=== PATIENT | female | born 1985 | race American Indian/Alaskan Native ===

== ENCOUNTER 2017-08-29 08:59 | Emergency (ER) | payer MEDICAID ==
[2017-08-29] MEDS ORDERED: TYLENOL PO ONE (09:33)
--- NOTE | 2017-08-29 09:36 | Emergency Department Report ---
Chief Complaint: Abdominal Pain Stated Complaint: / CRAMPING/VOMITING Time Seen by Provider: 08/29/17 09:32 - HPI History of Present Illness: 31-year-old AA female presents to the emergency department with complaint of severe mid upper abdominal discomfort and cramping that has been going on since this morning. The patient is about 13 weeks , . She is 13 weeks based on her last menstrual cycle but she has been following up with an PULP OPERATOR at a local women's clinic, Dr. King. She denies any vaginal bleeding, discharge, dysuria. She does have some nausea and vomiting and feels sweaty. She otherwise denies any past medical history. She presents with elevated blood pressure and denies any history of hypertension but did say that towards the end of her last she was having some elevated blood pressure with concern for preeclampsia. She has not taken anything for her symptoms. Presentation. - ROS Review of Systems: Positive for abdominal pain/cramping and nausea and vomiting Negative for fever, vaginal bleeding, discharge, dysuria - Exam Vital Signs: Vital Signs 08/29/17 09:05 Temperature 98.6 F Pulse Rate 64 Blood Pressure 171/87 Physical Exam: Heart and lungs sounds are normal to auscultation. There is some tenderness to palpation towards the upper abdomen. No guarding. MSE screening note: Focused history and physical exam performed. Due to findings the following was ordered: Patient will have a CBC, CMP, quantitative and a urinalysis. She will have a transvaginal and obstetric ultrasound to rule out an ectopic and look into her . Patient may need more labs or imaging regarding her upper abdominal pain. ED Disposition for MSE Condition: Stable Instructions: Abdominal Pain (ED) Referrals: PRIMARY CARE, [Primary Care Provider] - 3-5 Days
[2017-08-29 09:40] LABS: Basophils % (Auto) 0.3 % (0.0-1.8); Eosinophils # (Auto) 0.2 K/mm3 (0.0-0.4); Eosinophils % (Auto) 1.4 % (0.0-4.3); Hematocrit 36.4 % (30.3-42.9); Hemoglobin 11.9 gm/dl (10.1-14.3); Lymphocytes # (Auto) 2.1 K/mm3 (1.2-5.4); Lymphocytes % (Auto) 18.1 % (13.4-35.0); Mean Corpuscular HGB Conc 33 % (30-34); Mean Corpuscular Hemoglobin 28 pg (28-32); Mean Corpuscular Volume 84 fl (79-97); Monocytes # (Auto) 0.8 K/mm3 (0.0-0.8); Monocytes % (Auto) 6.8 % (0.0-7.3); Platelet Count 232 K/mm3 (140-440); Red Blood Count 4.32 M/mm3 (3.65-5.03); Red Cell Distribution Width 14.1 % (13.2-15.2)
[2017-08-29 09:53] LABS: Bilirubin,Urine NEG (Negative); Blood,Urine NEG (Negative); Color,Urine Yellow (Yellow); Mucus,Urine FEW /HPF; Protein,Urine <15 mg/dL mg/dL (Negative); Urobilinogen,Urine < 2.0 mg/dL (<2.0)
[2017-08-29 10:44] LABS: Alanine Aminotransferase 12 units/L (7-56); Albumin 3.7 g/dL (3.9-5); BUN/Creatinine Ratio 9; Blood Urea Nitrogen 6 mg/dL (7-17); Calcium 8.7 mg/dL (8.4-10.2); Hemolysis Index 3
[2017-08-29 11:49] VITALS: BP 135/77
--- NOTE | 2017-08-29 12:19 | Ultrasound Report ---
OB ULTRASOUND GREATER THAN 14 WEEKS INDICATION: Abdominal pain, cramping, . COMPARISON: None similar at this institution. TECHNIQUE: Transabdominal grayscale ultrasound with Doppler interrogation. Gestation: Michaels Position: Breech Amniotic Fluid: WNL (<less than 24 weeks, subjective) Placenta: Posterior Placental Grade: Zero Heart Rate: 144 BPM Cervical length: 3.3 cm (Normal > 3 cm) It is too early for a anatomical survey BPD: 2.5 cm = 14 w 3 d HC: 9.6 cm = 14 w 3 d AC: 8.1 cm = 14 w 4 d FL: 1.3 cm = 13 w 5 d HC/AC Ratio: 1.18 Cephalic Index: 83 LMP: 05/27/2017 Clinical age = 13 w 3 d EDC: 03/03/2018 US Gest. Age = 14 w 2 d EDC: 02/25/2018 CONCLUSION: Single, viable intrauterine gestation with ultrasound estimated age of 14 weeks and 2 days and EDC of 02/25/2018, currently in breech lie with details, as above. Thank you for the opportunity to participate in this patient's care.
--- NOTE | 2017-08-29 12:37 | Emergency Department Report ---
HPI - General Chief Complaint: Abdominal Pain Time Seen by Provider: 08/29/17 09:32 - HPI HPI: 31-year-old AA female presents to the emergency department with complaint of severe mid upper abdominal discomfort and cramping that has been going on since this morning. The patient is about 13 weeks , . She is 13 weeks based on her last menstrual cycle but she has been following up with an CSR RETAIL at a local women's clinic, Dr. King. She denies any vaginal bleeding, discharge, dysuria. She does have some nausea and vomiting and feels sweaty. She otherwise denies any past medical history. She presents with elevated blood pressure and denies any history of hypertension but did say that towards the end of her last she was having some elevated blood pressure with concern for preeclampsia. She has not taken anything for her symptoms. ED Past Medical Hx - Past Medical History Additional medical history: pregeant 13 weeks - Surgical History Past Surgical History?: No - Social History Smoking Status: Never Smoker ED Review of Systems ROS: Stated complaint: / CRAMPING/VOMITING Other details as noted in HPI Comment: All other systems reviewed and negative Constitutional: denies: chills, fever Eyes: denies: eye pain, eye discharge, vision change ENT: denies: ear pain, throat pain Respiratory: denies: cough, shortness of breath, wheezing Cardiovascular: denies: chest pain, palpitations Gastrointestinal: abdominal pain. denies: diarrhea Genitourinary: denies: urgency, dysuria, discharge Musculoskeletal: denies: back pain, joint swelling, arthralgia Skin: denies: rash, lesions Neurological: denies: headache, weakness, paresthesias Physical Exam - Physical Exam Vital Signs: Vital Signs 08/29/17 08/29/17 08/29/17 09:05 09:40 11:49 Temperature 98.6 F 98.8 F Pulse Rate 64 60 60 Respiratory 18 Rate Blood Pressure 171/87 Blood Pressure 140/107 135/77 [Left] O2 Sat by Pulse 99 Oximetry Physical Exam: GENERAL: The patient is well-developed well-nourished. HENT: Normocephalic. Atraumatic. Patient has moist mucous membranes. EYES: Extraocular motions are intact. NECK: Supple. Trachea is midline. CHEST/LUNGS: Clear to auscultation. There is no respiratory distress noted. HEART/CARDIOVASCULAR: Regular. There is no tachycardia. There is no murmur. ABDOMEN: Abdomen is soft. There is some epigastric to left sided mild tenderness to palpation. No guarding. Patient has normal bowel sounds. There is no abdominal distention. SKIN: Skin is warm and dry. NEURO: The patient is awake, alert, and oriented. The patient is cooperative. The patient has no focal neurologic deficits. The patient has normal speech. MUSCULOSKELETAL: There is no tenderness or deformity. There is no limitation range of motion. There is no evidence of acute injury. ED Course Vital Signs 08/29/17 08/29/17 08/29/17 09:05 09:40 11:49 Temperature 98.6 F 98.8 F Pulse Rate 64 60 60 Respiratory 18 Rate Blood Pressure 171/87 Blood Pressure 140/107 135/77 [Left] O2 Sat by Pulse 99 Oximetry ED Medical Decision Making - Lab Data Result diagrams: 08/29/17 09:26 08/29/17 09:26 - Radiology Data Radiology results: report reviewed OB ULTRASOUND GREATER THAN 14 WEEKS INDICATION: Abdominal pain, cramping, . COMPARISON: None similar at this institution. TECHNIQUE: Transabdominal grayscale ultrasound with Doppler interrogation. Gestation: Michaels Position: Breech Amniotic Fluid: WNL (<less than 24 weeks, subjective) Placenta: Posterior Placental Grade: Zero Heart Rate: 144 BPM Cervical length: 3.3 cm (Normal > 3 cm) It is too early for a anatomical survey BPD: 2.5 cm = 14 w 3 d HC: 9.6 cm = 14 w 3 d AC: 8.1 cm = 14 w 4 d FL: 1.3 cm = 13 w 5 d HC/AC Ratio: 1.18 Cephalic Index: 83 LMP: 05/27/2017 Clinical age = 13 w 3 d EDC: 03/03/2018 US Gest. Age = 14 w 2 d EDC: 02/25/2018 CONCLUSION: Single, viable intrauterine gestation with ultrasound estimated age of 14 weeks and 2 days and EDC of 02/25/2018, currently in breech lie with details, as above. Thank you for the opportunity to participate in this patient's care. Transcribed By: RS Dictated By: ERON STONE MD Electronically Authenticated By: ERON STONE MD Signed Date/Time: 08/29/17 1212 - Medical Decision Making Patient presents with some upper abdominal cramping and/or discomfort that is mostly left-sided. Patient is and they ultrasound was done that shows a live intrauterine at about 14 weeks. Labs are mostly unremarkable including no urinary tract infection. Vital signs stable throughout her ED course. Her differential also includes possible cholelithiasis, however the patient does not have any right upper quadrant tenderness to palpation and had normal bilirubin on her labs. She has good follow-up with OB. She has been encouraged to return to the emergency Department with any worsening of her symptoms or any acute distress, especially if there is any development of vaginal bleeding. - Differential Diagnosis , miscarriage, GERD, cholelithiasis Critical Care Time: No Critical care attestation.: If time is entered above; I have spent that time in minutes in the direct care of this critically ill patient, excluding procedure time. ED Disposition Clinical Impression: Abdominal cramping Qualifiers: Weeks of gestation: 14 weeks Qualified Code(s): Z3A.14 - 14 weeks gestation of Disposition: DC-01 TO HOME OR SELFCARE Is pt being admited?: No Condition: Stable Instructions: (ED), Abdominal Pain in (ED) Additional Instructions: Please follow-up with your primary care physician and CSR RETAIL in the next few days. Return to the emergency Department with any worsening of your symptoms, development of vaginal bleeding, or any acute distress Referrals: ROXI, [place] [Other] - [facility] [Primary Care Provider] - 2-3 Days Time of Disposition: 12:37
== END 2017-08-29 12:44 | disposition home or self-care (01) ==
LOC: ED 08:59
DX: O26.892 Other specified pregnancy related conditions, second trimester (principal); R10.10 Upper abdominal pain, unspecified; Z3A.14 14 weeks gestation of pregnancy
CPT/HCPCS: 36415; 76805; 80053; 81001; 84702; 85025

== ENCOUNTER 2020-02-26 09:57 | Emergency (ER) | payer MEDICAID ==
--- NOTE | 2020-02-26 10:29 | Event Note ---
ED Screening Note Date of service: 02/26/20 Time: 10:23 ED Screening Note: 34-year-old -Citizen Of [place] female presents to the emergency room reporting that she started spotting on Thursday and today vaginal bleeding has gotten heavier. She denies any cramps. She is 3 para 2 with a last menstrual period 02/11/2020. Patient states that she just saw her OB doctor on Thursday for confirmation of . Patient has not had an ultrasound yet. This initial assessment/diagnostic orders/clinical plan/treatment(s) is/are subject to change based on patients health status, clinical progression and re- assessment by fellow clinical providers in the ED. Further treatment and workup at subsequent clinical providers discretion. Patient/guardian urged not to elope from the ED as their condition may be serious if not clinically assessed and managed. Initial orders include:
[2020-02-26 11:00] LABS: Basophils % (Auto) 0.4 % (0.0-1.8); Eosinophils # (Auto) 0.3 K/mm3 (0.0-0.4); Eosinophils % (Auto) 2.6 % (0.0-4.3); Hematocrit 38.3 % (30.3-42.9); Hemoglobin 12.6 gm/dl (10.1-14.3); Lymphocytes # (Auto) 2.5 K/mm3 (1.2-5.4); Lymphocytes % (Auto) 26.3 % (13.4-35.0); Mean Corpuscular HGB Conc 33 % (30-34); Mean Corpuscular Volume 81 fl (79-97); Monocytes # (Auto) 0.7 K/mm3 (0.0-0.8); Monocytes % (Auto) 7.2 % (0.0-7.3); Platelet Count 302 K/mm3 (140-440); Red Blood Count 4.73 M/mm3 (3.65-5.03); Red Cell Distribution Width 14.5 % (13.2-15.2)
[2020-02-26 12:11] LABS: Bilirubin,Urine NEG (Negative); Blood,Urine LG (Negative); Color,Urine Red (Yellow); Urobilinogen,Urine < 2.0 mg/dL (<2.0)
[2020-02-26 12:12] LABS: RBC,Urine > 182.0 /HPF (0.0-6.0)
--- NOTE | 2020-02-26 14:38 | Emergency Department Report ---
ED HPI - General Chief complaint: Vaginal Bleeding Stated complaint: 6 WEEKS VAGINAL BLEEDING Time Seen by Provider: 02/26/20 14:15 Source: patient Mode of arrival: Ambulatory Limitations: No Limitations - History of Present Illness Initial comments: This is a 34-year-old female nontoxic, well nourished in appearance, no acute signs of distress presents to the ED with c/o of vaginal bleeding and pelvic pain x3 days. Patient denies any abdominal pain. Patient denies any vaginal discharge or foul odor. Patient denies any nausea, vomiting, chest pain, shortness of breathe, fever, chills, headache, stiff neck, numbness, tingling. Patient denies any urinary symptoms. Patient denies any allergies or PMH. LMP 02/11/2020. MD Complaint: vaginal bleeding, other (pelvic pain) -: days(s) Location: pelvis Radiation: none Severity: mild Severity scale (0 -10): 3 Quality: cramping, aching Consistency: intermittent Improves with: none Worsens with: none Associated symptoms: vaginal bleeding. denies: nausea/vomiting, vaginal discharge, abdominal pain, dysuria, headache, vision changes, malaise, dysparuenia, rash, seizure, shortness of breath, syncope, weakness Vaginal bleeding: light :: Yes Pre-dez care: followed by OB - Related Data Home Medications Medication Instructions Recorded Confirmed Last Taken Formula Tablet 1 tab PO DAILY 02/19/18 02/19/18 02/19/18 10:00 Previous Rx's Medication Instructions Recorded Last Taken Type HYDROcodone/APAP 5-325 [[place] 1 each PO Q6HR PRN #30 tablet 02/20/18 Unknown Rx 5/325] Ibuprofen [Motrin] 800 mg PO Q8HR PRN #60 tablet 02/20/18 Unknown Rx Allergies Allergy/AdvReac Type Severity Reaction Status Date / Time No Known Allergies Allergy Unverified 08/29/17 09:09 ED Review of Systems ROS: Stated complaint: 6 WEEKS VAGINAL BLEEDING Other details as noted in HPI Constitutional: denies: chills, fever Eyes: denies: eye pain, eye discharge, vision change ENT: denies: ear pain, throat pain Respiratory: denies: cough, shortness of breath, wheezing Cardiovascular: denies: chest pain, palpitations Endocrine: no symptoms reported Gastrointestinal: denies: abdominal pain, nausea, diarrhea Genitourinary: abnormal menses. denies: urgency, dysuria, discharge Musculoskeletal: denies: back pain, joint swelling, arthralgia Skin: denies: rash, lesions Neurological: denies: headache, weakness, paresthesias Psychiatric: denies: anxiety, depression Hematological/Lymphatic: denies: easy bleeding, easy bruising ED Past Medical Hx - Past Medical History Hx Hypertension: No Hx Congestive Heart Failure: No Hx Diabetes: No Hx Deep Vein Thrombosis: No Hx Renal Disease: No Hx Sickle Cell Disease: No Hx Seizures: No Hx Asthma: No Hx COPD: No Hx HIV: No Additional medical history: pregeant 13 weeks - Social History Smoking Status: Never Smoker Substance Use Type: None - Medications Home Medications: Home Medications Medication Instructions Recorded Confirmed Last Taken Type Formula Tablet 1 tab PO DAILY 02/19/18 02/19/18 02/19/18 10:00 History HYDROcodone/APAP 5-325 [[place] 1 each PO Q6HR PRN #30 tablet 02/20/18 Unknown Rx 5/325] Ibuprofen [Motrin] 800 mg PO Q8HR PRN #60 tablet 02/20/18 Unknown Rx ED Physical Exam - General Limitations: No Limitations General appearance: alert, in no apparent distress - Head Head exam: Present: atraumatic, normocephalic - Eye Eye exam: Present: normal appearance - Neck Neck exam: Present: normal inspection, full ROM - Respiratory Respiratory exam: Absent: respiratory distress - Cardiovascular Cardiovascular Exam: Present: regular rate - GI/Abdominal GI/Abdominal exam: Present: soft, normal bowel sounds. Absent: distended, tenderness, guarding, rebound, rigid, diminished bowel sounds - Extremities Exam Extremities exam: Present: normal inspection - Back Exam Back exam: Present: normal inspection, full ROM. Absent: tenderness, CVA tenderness (R), CVA tenderness (L), muscle spasm, paraspinal tenderness, vertebral tenderness, rash noted - Neurological Exam Neurological exam: Present: alert, oriented X3, normal gait - Psychiatric Psychiatric exam: Present: normal affect, normal mood - Skin Skin exam: Present: warm, dry, intact, normal color. Absent: rash ED Course Vital Signs 02/26/20 10:16 Temperature 99.7 F H Pulse Rate 71 Respiratory 20 Rate Blood Pressure 136/75 O2 Sat by Pulse 98 Oximetry - Reevaluation(s) Reevaluation #1: 02/26/20 14:37 Patient is speaking in full sentences with no signs of distress noted. ED Medical Decision Making - Lab Data Result diagrams: 02/26/20 10:35 - Radiology Data Referring Physician: ANDERSON ARELLANO Patient Name: NADIYA BLAS Date of : 1985 Sex: Female Report Date: 2020-02-26 Report Status: Finalized [address] [address] Ultrasound Report Signed Patient: NADIYA BLAS MR#: [id number] : 1985 Acct:[id number] Age/Sex: 34 / F ADM Date: 02/26/20 Loc: ED Attendin mary Dr: Ordering Physician: ANDERSON ARELLANO NP Date of Service: 02/26/20 Procedure(s): US OB transvaginal Accession Number(s): [id number] cc: ANDERSON ARELLANO NP ULTRASOUND OBSTETRIC INDICATION / CLINICAL INFORMATION: vaginal bleeding. Clinical Gestational Age (GA) in weeks, days: 6, 4 TECHNIQUE: Transabdominal and Transvaginal. COMPARISON: None available. FINDINGS: No intrauterine gestational sac. Thickening of the endometrial complex measuring 1.7 cm. ADNEXA: No adnexal mass or cyst. FREE FLUID: None. ADDITIONAL FINDINGS: Tiny nabothian cyst in the cervix. IMPRESSION: 1. No intrauterine . C linical and laboratory correlation is recommended. Signer Name: Angie Britton MD Signed: 02/26/2020 3:18 PM Workstation Name: [id number] Transcribed By: DT Dictated By: Babar Britton MD Electronically Authenticated By: Babar Britton MD Signed Date/Time: 02/26/20 1518 DD/ 1516 TD/TT: Referring Physician: ANDERSON ARELLANO Patient Name: NADIYA BLAS Date of : 1985 Sex: Female Report Date: 2020-02-26 Report Status: Finalized [address] [address] Ultrasound Report Signed Patient: NADIYA BLAS MR#: [id number] : 1985 Acct:[id number] Age/Sex: 34 / F ADM Date: 02/26/20 Loc: ED Attending Dr: Ordering Physician: ANDERSON ARELLANO NP Date of Service: 02/26/20 Procedure(s): US OB <= 14 weeks fetus Accession Number(s): [id number] cc: ANDERSON ARELLANO NP ULTRASOUND OBSTETRIC INDICATION / CLINICAL INFORMATION: vaginal bleeding. Clinical Gestational Age (GA) in weeks, days: 6, 4 TECHNIQUE: Transabdominal and Transvaginal. COMPARISON: None available. FINDINGS: No intrauterine gestational sac. Thickening of the endometrial complex measuring 1.7 cm. ADNEXA: No adnexal mass or cyst. FREE FLUID: None. ADDITIONAL FINDINGS: Tiny nabothian cyst in the cervix. IMPRESSION: 1. No intrauterine . Clinical and laboratory correlation is recommended. Signer Name: Angie Britton MD Signed: 02/26/2020 3:18 PM Workstation Name: [id number] Transcribed By: DT Dictated By: Babar Britton MD Electronically Authenticated By: Babar Britton MD Signed Date/Time: 02/26/20 1518 DD/ 15 TD/TT: - Medical Decision Making This is a 34-year-old female presents with threatened miscarriage. Patient is stable and was examined by me. Normal abdominal exam. US OB obtained and dictated by the radiologist. Ua obtained. Quantative serum test obtained. Patient notified of the US report with no questions noted by the patient. Patient was instructed f/u with [facility] in 2 days. RH factor positive. Labs within normal limits. Patient was given strict precautions and education on ectopic . At time of discharge, the patient does not seem toxic or ill in appearance. No acute signs of distress noted. Patient agrees to discharge treatment plan of care. No further questions noted by the patient. Critical care attestation.: If time is entered above; I have spent that time in minutes in the direct care of this critically ill patient, excluding procedure time. ED Disposition Clinical Impression: Vaginal bleeding during Disposition: DC-01 TO HOME OR SELFCARE Is pt being admited?: No Does the pt Need Aspirin: No Condition: Stable Instructions: Vaginal Bleeding During , First Trimester Additional Instructions: Follow-up with a OBGYN doctor in 2 days for a repeat quantitative test and possible ultrasound or if symptoms worsen and continue return to emergency room as soon as possible. Referrals: PRIMARY CARE, [Primary Care Provider] - 3-5 Days [facility] [Provider Group] - 3-5 Days [facility] [Provider Group] - 3-5 Days Forms: Work/School Release Form(ED) Time of Disposition: 15:32
--- NOTE | 2020-02-26 15:22 | Ultrasound Report ---
ULTRASOUND OBSTETRIC INDICATION / CLINICAL INFORMATION: vaginal bleeding. Clinical Gestational Age (GA) in weeks, days: 6, 4 TECHNIQUE: Transabdominal and Transvaginal. COMPARISON: None available. FINDINGS: No intrauterine gestational sac. Thickening of the endometrial complex measuring 1.7 cm. ADNEXA: No adnexal mass or cyst. FREE FLUID: None. ADDITIONAL FINDINGS: Tiny nabothian cyst in the cervix. IMPRESSION: 1. No intrauterine . Clinical and laboratory correlation is recommended. Signer Name: Angie Britton MD Signed: 02/26/2020 3:18 PM Workstation Name: [id number]
[2020-02-26] MEDS ORDERED: MORPHINE 2 MG/1 ML INJ ONE (16:15)
[2020-02-26 17:41] VITALS: BP 132/72
== END 2020-02-26 17:02 | disposition home or self-care (01) ==
LOC: ED 09:57
DX: O20.8 Other hemorrhage in early pregnancy (principal); O26.891 Other specified pregnancy related conditions, first trimester; R10.2 Pelvic and perineal pain; Z79.1 Long term (current) use of non-steroidal anti-inflammatories (NSAID); Z79.899 Other long term (current) drug therapy; Z3A.00 Weeks of gestation of pregnancy not specified
CPT/HCPCS: 36415; 76801; 76817; 81001; 84702; 85025; 86900; 86901; 99284; J2270

== ENCOUNTER 2021-05-15 06:05 | Outpatient (CLI) | payer MEDICAID ==
[2021-05-15] MEDS ORDERED: LACTATED RINGERS 500 ML IV ONE (07:25)
[2021-05-15 07:55] LABS: Hematocrit 30.6 % (30.3-42.9); Hemoglobin 10.5 gm/dl (10.1-14.3); Mean Corpuscular HGB Conc 34 % (30-34); Mean Corpuscular Volume 83 fl (79-97); Platelet Count 198 K/mm3 (140-440); Red Blood Count 3.66 M/mm3 (3.65-5.03); Red Cell Distribution Width 14.7 % (13.2-15.2)
[2021-05-15 07:59] LABS: Mucus,Urine FEW /HPF; RBC,Urine < 1.0 /HPF (0.0-6.0)
[2021-05-15 08:05] LABS: Bilirubin,Urine Negative (Negative); Blood,Urine Negative (Negative); Color,Urine Straw (Yellow); Protein,Urine <15 mg/dL mg/dL (Negative); Urobilinogen,Urine < 2.0 mg/dL (<2.0)
[2021-05-15 08:49] LABS: Alanine Aminotransferase 14 units/L (7-56); Uric Acid 3.8 mg/dL (3.5-7.6)
[2021-05-15 09:02] VITALS: BP 131/69
== END 2021-05-15 09:35 | disposition home or self-care (01) ==
LOC: TRG 06:05 → APU 06:07 → TRG 09:35
PROVIDERS: ATTEND Obstetrics & Gynecology
DX: O09.893 Supervision of other high risk pregnancies, third trimester (principal); O13.3 Gestational [pregnancy-induced] hypertension without significant proteinuria, third trimester; Z3A.34 34 weeks gestation of pregnancy
CPT/HCPCS: 36415; 59025; 81001; 82565; 83615; 84450; 84460; 84550; 85027

== ENCOUNTER 2021-06-27 16:14 | Emergency (ER) | payer MEDICAID ==
[2021-06-27 16:27] VITALS: BP 166/72
[2021-06-27] MEDS ORDERED: ACETAMINOPHEN 325 MG TAB PO ONE (16:29)
[2021-06-27] MEDS ORDERED: SODIUM CHLORIDE 0.9% 1000 ML 1,000 ML IV ONE (16:29)
[2021-06-27] MEDS ORDERED: SODIUM CHLORIDE 0.9% 1000 ML IV SOLN IV ONE (16:33)
[2021-06-27] MEDS ORDERED: CEFEPIME/NS 2 GM/100 ML 2 GM/100 ML BAG IV ONE (16:33)
[2021-06-27 17:35] LABS: Bilirubin,Urine NEG (Negative); Blood,Urine LG (Negative); Color,Urine Red (Yellow); Urobilinogen,Urine < 2.0 mg/dL (<2.0)
[2021-06-27 17:36] LABS: RBC,Urine > 182.0 /HPF (0.0-6.0)
[2021-06-27 17:51] LABS: Alanine Aminotransferase 14 units/L (7-56); Albumin 3.8 g/dL (3.9-5); Blood Urea Nitrogen 10 mg/dL (7-17); Hemolysis Index 59
[2021-06-27 17:54] LABS: Basophils % (Auto) 0.1 % (0.0-1.8); Eosinophils % (Auto) 0.1 % (0.0-4.3); Hematocrit 25.4 % (30.3-42.9); Hemoglobin 8.2 gm/dl (10.1-14.3); Lymphocytes # (Auto) 1.1 K/mm3 (1.2-5.4); Lymphocytes % (Auto) 6.4 % (13.4-35.0); Mean Corpuscular HGB Conc 32 % (30-34); Mean Corpuscular Volume 83 fl (79-97); Monocytes # (Auto) 1.2 K/mm3 (0.0-0.8); Monocytes % (Auto) 7.1 % (0.0-7.3); Platelet Count 313 K/mm3 (140-440); Red Blood Count 3.07 M/mm3 (3.65-5.03); Red Cell Distribution Width 15.1 % (13.2-15.2)
[2021-06-27 17:57] LABS: BUN/Creatinine Ratio 14
[2021-06-27] MEDS ORDERED: KETOROLAC 30 MG/1 ML INJ IV ONE (18:13)
[2021-06-27] MEDS ORDERED: ONDANSETRON 4 MG/2 ML INJ IV ONE (18:14)
--- NOTE | 2021-06-27 18:21 | Emergency Department Report ---
ED Abdominal Pain HPI - General Chief Complaint: Urogenital-Female Stated Complaint: UTI/FEVER/BACK PAIN Source: patient Mode of arrival: Ambulatory Limitations: No Limitations - History of Present Illness Initial Comments: 36 yo F who just have spontaneous vaginal delivery 2 weeks ago who now present with lower abdominal pain that started intermittently since her delivery. Pt has followed up with her cart pusher who have reassured her. She also reports some nausea without emesis. Pt also reports bilateral mid back pain radiating to the front abdomen. She came in today when she started having fever last night. Bending forwards worsen pain. No other modifying or associated factors reported. - Related Data Home Medications Medication Instructions Recorded Confirmed Last Taken Formula Tablet 1 tab PO DAILY 02/19/18 02/19/18 02/19/18 10:00 labetaloL [Labetalol 100mg TAB] 100 mg PO BID 06/12/21 06/12/21 Unknown Previous Rx's Medication Instructions Recorded Last Taken Type HYDROcodone/APAP 5-325 [Morris 1 each PO Q6HR PRN #30 tablet 02/20/18 Unknown Rx 5/325] Ibuprofen [Motrin] 800 mg PO Q8HR PRN #60 tablet 02/20/18 Unknown Rx Ferrous Sulfate [Feosol 325 MG tab] 325 mg PO BID 30 Days #60 tablet 06/13/21 Unknown Rx Ibuprofen [Motrin 800 MG tab] 800 mg PO Q8HR #30 tablet 06/13/21 Unknown Rx Docusate Sodium [Colace] 100 mg PO BID PRN 10 Days #20 06/27/21 Unknown Rx capsule Ondansetron (Nf) [Zofran TAB] 8 mg PO Q8HR PRN #20 tablet 06/27/21 Unknown Rx oxyCODONE /ACETAMINOPHEN [Percocet 1 tab PO Q6HR PRN 5 Days #20 06/27/21 Unknown Rx 5/325] tablet NS Allergies Allergy/AdvReac Type Severity Reaction Status Date / Time No Known Allergies Allergy Verified 06/12/21 23:12 ED Review of Systems ROS: Stated complaint: UTI/FEVER/BACK PAIN Other details as noted in HPI Comment: All other systems reviewed and negative Gastrointestinal: abdominal pain, nausea. denies: vomiting ED Past Medical Hx - Past Medical History Previous Medical History?: Yes Hx Hypertension: Yes (CHTN) Hx Heart Attack/AMI: No Hx Congestive Heart Failure: No Hx Diabetes: No Hx Deep Vein Thrombosis: No Hx Liver Disease: No Hx Renal Disease: No Hx Sickle Cell Disease: No Hx Seizures: No Hx Asthma: No Hx COPD: No Hx HIV: No Additional medical history: pregeant 13 weeks - Surgical History Past Surgical History?: No - Social History Smoking Status: Never Smoker Substance Use Type: None - Medications Home Medications: Home Medications Medication Instructions Recorded Confirmed Last Taken Type Formula Tablet 1 tab PO DAILY 02/19/18 02/19/18 02/19/18 10:00 History HYDROcodone/APAP 5-325 [Morris 1 each PO Q6HR PRN #30 tablet 02/20/18 06/12/21 Unknown Rx 5/325] Ibuprofen [Motrin] 800 mg PO Q8HR PRN #60 tablet 02/20/18 06/12/21 Unknown Rx labetaloL [Labetalol 100mg TAB] 100 mg PO BID 06/12/21 06/12/21 Unknown History Ferrous Sulfate [Feosol 325 MG tab] 325 mg PO BID 30 Days #60 tablet 06/13/21 Unknown Rx Ibuprofen [Motrin 800 MG tab] 800 mg PO Q8HR #30 tablet 06/13/21 Unknown Rx Docusate Sodium [Colace] 100 mg PO BID PRN 10 Days #20 06/27/21 Unknown Rx capsule Ondansetron (Nf) [Zofran TAB] 8 mg PO Q8HR PRN #20 tablet 06/27/21 Unknown Rx oxyCODONE /ACETAMINOPHEN [Percocet 1 tab PO Q6HR PRN 5 Days #20 06/27/21 Unknown Rx 5/325] tablet NS ED Physical Exam - General Limitations: No Limitations General appearance: alert, in no apparent distress - Head Head exam: Present: normal inspection - Eye Eye exam: Present: normal appearance Pupils: Present: normal accommodation - ENT ENT exam: Present: normal exam, normal orophraynx, mucous membranes moist - Neck Neck exam: Present: normal inspection, full ROM. Absent: tenderness - Respiratory Respiratory exam: Present: normal lung sounds bilaterally. Absent: respiratory distress, accessory muscle use - GI/Abdominal GI/Abdominal exam: Present: soft, tenderness (suprapubic tenderness to palpation ). Absent: distended - Extremities Exam Extremities exam: Present: normal inspection, normal capillary refill - Back Exam Back exam: Present: normal inspection - Neurological Exam Neurological exam: Present: alert, oriented X3 - Psychiatric Psychiatric exam: Present: normal affect, normal mood - Skin Skin exam: Present: warm, intact, normal color. Absent: rash ED Course Vital Signs 06/27/21 16:23 Temperature 104.0 F H Pulse Rate 112 H Respiratory 17 Rate Blood Pressure 166/72 O2 Sat by Pulse 100 Oximetry - Reevaluation(s) Reevaluation #1: 06/27/21 18:19 here with abdominal pain following her 2 weeks ago and noted with suprapubic tenderness to palpation-- with fever will go ahead and start ivf ns 1L bolus and give Rocephin prophylactically while waiting for routine CBC, CMP, UA and lactic acid for any infectious process or electrolyte abnormality. Also order CT scan of the abdomen/pelvic for any inflammatory changes. Reevaluation #2: 06/27/21 18:22 Noted with leukocytosis likely reactive we will continue to monitor. Patient lactic acid is within normal limits which proved systemic infection unlikely. 06/27/21 21:00 I reevaluated this patient and she reported feeling much better after the IV fluids and pain medication. After expressed and discussed the finding on the CT scan and his other labs concerning for pyelonephritis with leukocytosis she says she will rather go home if he has alternative to make that happen. I told the patient that there is a possibility to send her home with p.o. antibiotics since nausea and vomiting is not her major issue but to return to the ED if her pain is not controlled with her pain medication and the antibiotics as this could be complication to her kidney infection. So will discharge her home on Cipro 500 mg BID x 14 days and Zofran 4mg q8h prn nausea and Percocet for pain ED Medical Decision Making - Lab Data Result diagrams: 06/27/21 17:21 06/27/21 17:21 - Medical Decision Making Leukocytosis with fever and bilateral CVA tenderness could signify urinary tract infection and with positive urine leukocytes and suspicious of pyelonephritis on CT scan makes pyelonephritis plausible-- pt has already had Cefepime 2g IVPB x 1 and ivf ns 1L bolus. Will call hospital list and admit for pyelonephritis. Critical care attestation.: If time is entered above; I have spent that time in minutes in the direct care of this critically ill patient, excluding procedure time. ED Disposition Clinical Impression: Flank pain, acute, Pyelonephritis Abdominal pain Qualifiers: Abdominal location: lower abdomen, unspecified Qualified Code(s): R10.30 - Lower abdominal pain, unspecified Disposition: 01 HOME / SELF CARE / HOMELESS Is pt being admited?: No Does the pt Need Aspirin: No Condition: Stable Instructions: Pyelonephritis, Adult, [id number], Flank Pain, Adult, [id number] Additional Instructions: It is very important that you take and complete your antibiotics as prescribed to help your symptoms and to prevent complication Please do not hesitate to call if you develop fever or your pain is now controlled on your pain medication while you are on the antibiotics Fever is a red flag if you continue to have fever please call or return to emergency room for further evaluation and treatment as this could be a sign of infection as well Call and schedule follow-up with your primary doctor in the next 3 to 5 days for progress Prescriptions: Docusate Sodium [Colace] 100 mg PO BID PRN 10 Days #20 capsule PRN Reason: Constipation oxyCODONE /ACETAMINOPHEN [Percocet 5/325] 1 tab PO Q6HR PRN 5 Days #20 tablet NS PRN Reason: Pain Ondansetron (Nf) [Zofran TAB] 8 mg PO Q8HR PRN #20 tablet PRN Reason: Nausea Referrals: PRIMARY CARE,MD [Primary Care Provider] - 3-5 Days Time of Disposition: 21:14
--- NOTE | 2021-06-27 19:30 | Cat Scan Report ---
CT ABDOMEN AND PELVIS WITH CONTRAST INDICATION / CLINICAL INFORMATION: Unspecified abdominal pain. TECHNIQUE: Axial CT images were obtained through the abdomen and pelvis after 100 cc Omni [address] scans at this location are performed using CT dose reduction for ALARA by means of automated expos ure control. COMPARISON: Pelvic ultrasound performed on 06/22/2021. FINDINGS: LOWER CHEST: No significant abnormality. LIVER: The right hepatic lobe is enlarged and measures 20 cm in length. No other significant abnormal ity. GALLBLADDER: No significant abnormality. BILE DUCTS: No significant abnormality. PANCREAS: No significant abnormality. SPLEEN: No significant abnormality. ADRENALS: No significant abnormality. RIGHT KIDNEY/URETER: Multiple areas of heterogeneously decreased attenuation are seen posteriorly/lat erally along the mid pole of the right kidney measuring up to 2.2 x 2.0 cm on image 52 of series 2. T here is associated mild perinephric fat stranding. Nonobstructive mid and lower pole right renal ston es measure up to 2 mm. No other significant abnormality. LEFT KIDNEY/URETER: Multiple nonobstructive stones measure up to 3 mm along the lower pole. No other significant abnormality. STOMACH/SMALL BOWEL: No significant abnormality. COLON: No significant abnormality. APPENDIX: No significant abnormality. PERITONEUM: No free fluid. No free air. No fluid collection. LYMPH NODES: No significant adenopathy. VASCULATURE: No significant abnormality. URINARY BLADDER: No significant abnormality. REPRODUCTIVE ORGANS: The uterus is enlarged and measures 16 x 8 cm. No uterine mass is identified. No significant adnexal abnormality. ADDITIONAL FINDINGS: None. BONES: No significant abnormality IMPRESSION: 1. Abnormal appearance of the right kidney as above could represent pyelonephritis. Primary renal marie plasm is a less likely consideration. Please correlate with the clinical findings. 2. Additional findings as above. Signer Name: Gokul Vivas MD Signed: 06/27/2021 7:26 PM Workstation Name: [id number]
== END 2021-06-27 21:53 | disposition home or self-care (01) ==
LOC: ED 16:14
DX: N12 Tubulo-interstitial nephritis, not specified as acute or chronic (principal); I10 Essential (primary) hypertension; Z79.899 Other long term (current) drug therapy
CPT/HCPCS: 36415; 74177; 80053; 81001; 82140; 85025; 87040; 87086; 96361; 96365; 96366; 99284; J0692; J7030; Q9967; Q0162

== ENCOUNTER 2021-07-24 07:12 | Day surgery (SDC) | payer MEDICAID ==
[~2021-07-24 07:12] MED LIST: ACETAMINOPHEN 500 MG TAB PO SCH; CELECOXIB 200 MG CAP PO SCH; GABAPENTIN 300 MG CAP PO SCH; LACTATED RINGERS 1,000 ML IV SCH; MIDAZOLAM 2 MG/2 ML INJ IV SCH; SCOPOLAMINE TRANSDERMAL PATCH 72 HR TD SCH
--- NOTE | 2021-07-24 07:37 | Short Stay Summary ---
Short Stay Documentation Date of service: 07/24/21 Narrative H&P: 36-year-old -0-1-3 with a history of undesired fertility. The patient is aware of other contraceptive options and has elected for permanent sterilization. - History Principal diagnosis: Unwanted fertility Past Medical History: No medical history Past Surgical History: No surgical history Social history: - Allergies and Medications Current Medications: Allergies No Known Allergies Allergy (Verified 06/12/21 23:12) Home Medications Medication Instructions Recorded Confirmed Last Taken Type Formula Tablet 1 tab PO DAILY 02/19/18 02/19/18 02/19/18 10:00 History Vitamin C 250 mg PO DAILY 07/17/21 07/17/21 Unknown History Active Medications Acetaminophen (Acetaminophen 500 Mg Tab) 1,000 mg PO PREOP STORM Celecoxib (Celecoxib 200 Mg Cap) 200 mg PO PREOP STORM Gabapentin (Gabapentin 300 Mg Cap) 300 mg PO PREOP STORM Lactated Ringer's (Lactated Ringers) 1,000 mls @ 100 mls/hr IV DIRECT STORM Stop: 07/24/21 23:59 Midazolam HCl (Midazolam 2 Mg/2 Ml Inj) 2 mg IV PREOP STORM Scopolamine (Scopolamine Transdermal Patch 72 Hr) 1 each TD PREOP STORM - Physical exam General appearance: no acute distress Integumentary: no rash HEENT: Atraumatic Lungs: Clear to auscultation Breasts: deferred Heart: Regular rate Gastrointestinal: normal Female Genitourinary: deferred Rectal Exam: deferred - Brief post op/procedure progress note Date of procedure: 07/24/21 Pre-op diagnosis: Undesired fertility Post-op diagnosis: same Procedure: Laparoscopic bilateral tubal ligation with Filshie clips Anesthesia: TWILAA Surgeon: DANIELLA AGUILAR Estimated blood loss: minimal Pathology: none Condition: stable - Hospital course Hospital course: The patient was admitted the day of surgery and underwent a laparoscopic bilateral tubal ligation. Please see operative note for details of surgery. Her postoperative course was uneventful. - Disposition Condition at discharge: Good Disposition: 01 HOME / SELF CARE / HOMELESS Short Stay Discharge Plan Activity: other (Pelvic rest for 1 week) Diet: regular Additional Instructions: Follow-up is not required Follow-up as needed
[2021-07-24] MEDS ORDERED: BUPIVACAINE/PF (0.25%) 2.5 MG/ML 30 ML VIAL INFILTRATI ONE ×2 (07:46→11:45)
--- NOTE | 2021-07-24 08:08 | Anesthesia Consultation ---
Anesthesia Consult and Med Hx Date of service: 07/24/21 - Airway Anesthetic Teeth Evaluation: Good ROM Head & Neck: Adequate Mental/Hyoid Distance: Adequate Mallampati Class: Class II Intubation Access Assessment: Probably Good - Pre-Operative Health Status ASA Pre-Surgery Classification: ASA1 Proposed Anesthetic Plan: General - Pulmonary Hx Smoking: No Hx Respiratory Symptoms: No - Cardiovascular System Hx Hypertension: No (gestational HTN, resolved post-) - Central Nervous System CVA: No - Endocrine Hx Renal Disease: No Hx Liver Disease: No Hx Insulin Dependent Diabetes: No Hx Non-Insulin Dependent Diabetes: No Hx Thyroid Disease: No - Other Systems Hx Obesity: Yes (BMI 39) - Additional Comments Anesthesia Medical History Comments: No hx anesthetic complications.
--- NOTE | 2021-07-24 08:09 | Anesthesia Day of Surgery ---
Anesthesia Day of Surgery - Day of Surgery Patient Examined: Yes Patient H&P Reviewed: Yes Patient is NPO: Yes
[2021-07-24] MEDS ORDERED: ONDANSETRON 4 MG/2 ML INJ IV PRN (08:30)
[2021-07-24] MEDS ORDERED: HYDROmorphone 1 MG/1 ML INJ IV PRN (08:30)
[2021-07-24] MEDS ORDERED: oxyCODONE /ACETAMINOPHEN 5-325MG TAB PO PRN (08:30)
[2021-07-24] MEDS ORDERED: fentaNYL 100 MCG/2 ML INJ ONE (08:55)
[2021-07-24] MEDS ORDERED: LIDOCAINE MPF (2%) 20 MG/1 ML VIAL 5 ML ONE (08:55)
[2021-07-24] MEDS ORDERED: propofoL 200 MG/20 ML VIAL IV ONE (08:55)
[2021-07-24] MEDS ORDERED: ROCURONIUM 50 MG/5 ML INJ IV ONE (08:55)
[2021-07-24] MEDS ORDERED: NEOSTIGMINE 10MG/10 ML INJ MDV ONE (09:58)
[2021-07-24] MEDS ORDERED: GLYCOPYRROLATE 0.4 MG/2 ML INJ ONE (09:58)
--- NOTE | 2021-07-24 10:06 | Operative Report ---
Operative Report Operative Report: Date of surgery: July 24, 2021 Preoperative diagnosis: Unwanted fertility Postoperative diagnosis: Same as above Procedure: Laparoscopic bilateral tubal ligation with Filshie clips Surgeon: Kelly Morrell M.D. Anesthesia: General endotracheal anesthesia Estimated blood loss: Minimal Findings: Normal uterus tubes and ovaries Indication: 36-year-old -0-1-3 with undesired fertility. Procedure: The patient was taken to the operating room and given general endotracheal anesthesia without complication. The patient is prepped and draped in a normal sterile fashion. A bivalve speculum was placed in the patient's vagina and a single-tooth tenaculum was placed on the anterior lip of the cervix .A uterine acorn manipulator was placed, and the bivalve speculum was then removed. Attention was then turned to the patient's abdomen where a 5 mm infraumbilical skin incision was then made. A Veress needle was placed and peritoneal entry was verified water-filled syringe. Insufflation of the peritoneal cavity was performed with CO2 gas. A 5 mm trocar was placed and the laparoscope was then inserted. The patient was then placed in Trendelenburg. A 7 mm suprapubic skin incision was then made. Under direct visualization a 7 mm trocar was then placed. An additional 5 mm left lateral trocar was also placed. General survey of the patient's abdomen revealed normal uterus tubes and ovaries. The fallopian tube was then followed out to the fimbriated end. A Filshie clip was applied to the ampullary portion of the tube this was performed on the contralateral side as well. An additional Filshie clip had to be applied to the right fallopian tube secondary to inaccurate placement of the first Filshie clip. The trocars were then removed. The pneumoperitoneum was then released. The 5 mm trocar laparoscope was then removed. The skin incisions were then closed with 4-0 Monocryl. The incisions were injected with quarter percent Marcaine. Dressings were applied to the incision. The vaginal instruments were then removed atraumatically. Then successfully extubated and taken to the recovery room. All sponge laps and needle counts were correct x2.
[2021-07-24] MEDS ORDERED: ONDANSETRON 4 MG/2 ML INJ ONE (10:16)
[2021-07-24] MEDS ORDERED: KETOROLAC 30 MG/1 ML INJ ONE (10:16)
[2021-07-24] MEDS ORDERED: dexAMETHasone 20 MG/5 ML VIAL ONE (10:16)
[2021-07-24 13:07] VITALS: BP 158/88
--- NOTE | 2021-07-24 14:27 | Post Anesthesia Evaluation ---
- Post Anesthesia Evaluation Patient Participated: Yes Airway Patent: Yes Stable Respiratory Function: Yes Nausea/Vomiting: No Temp > 96.8F: Yes Pain Manageable: Yes Adequeate Hydration: Yes Anesthesia Complications: No
== END 2021-07-24 11:25 | disposition home or self-care (01) ==
LOC: OR 07:12
PROVIDERS: ATTEND Obstetrics & Gynecology
DX: Z30.2 Encounter for sterilization (principal); G43.909 Migraine, unspecified, not intractable, without status migrainosus; Z79.899 Other long term (current) drug therapy; Z98.890 Other specified postprocedural states; Z87.440 Personal history of urinary (tract) infections; Z83.3 Family history of diabetes mellitus; Z82.49 Family history of ischemic heart disease and other diseases of the circulatory system
CPT/HCPCS: 58671; 81025; J1100; J1170; J1815; J1885; J2250; J2405; J2704; J2710; J3010; J3490; J7120